=== PATIENT | male | born 1930 | race Caucasian/White ===

== ENCOUNTER → 2016-11-20 | Outpatient (CLI) | payer MEDICARE, BC ==
--- NOTE | 2016-11-20 17:22 | DI ---
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 RIGHT: PSV ICA 101 PDV ICA 14 PSV CCA 82.1 PDV CCA 10.3 SVR 1.2 PSV ECA 195 ICA Diameter reduction 10%-30% (1.0-1.2 PSV<110)% LEFT: PSV ICA occluded PDV ICA occluded PSV CCA occluded PDV CCA occluded SVR occluded PSV ECA occluded ICA Diameter reduction % The right vertebral artery is patent with cephalic flow. The left vertebral artery is patent with cephalic flow. 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 The vertebral flow and the external carotid on the left side are patent. Patient still showed some plaque in the bulb on the right extending into the right ICA without current suggestion of hemodynamically significant narrowing. .
== END ==
LOC: IMA 15:18
PROVIDERS: ATTEND Family Medicine
DX: I65.22 Occlusion and stenosis of left carotid artery (principal)